=== PATIENT | female | born 1975 | race Caucasian/White ===

== ENCOUNTER → 2019-02-20 | Outpatient (REF) | payer BC ==
[~2019-02-20] MED LIST: PERC5TAB8 OR; [UNRECOGNIZED DRUG - OTHER] OR
[2019-02-20 17:10] LABS: HEMATOCRIT 36.1 % (36.0-47.0); HEMOGLOBIN 12.2 g/dl (12.0-15.5); MEAN CORPUSCULAR HEMOGLOBIN 31.6 pg (27.0-33.0); MEAN CORPUSCULAR HGB CONC 33.8 g/dl (32.0-36.5); MEAN CORPUSCULAR VOLUME 93.5 fl (80.0-96.0); PLATELET COUNT, AUTOMATED 262 10^3/uL (150-450); RED BLOOD COUNT 3.86 10^6/uL (4.00-5.40); WHITE BLOOD COUNT 6.5 10^3/uL (4.0-10.0)
[2019-02-20 17:32] LABS: HCG, SERUM QUALITATIVE NEGATIVE (NEGATIVE)
[2019-02-20 17:35] LABS: ALBUMIN 3.9 GM/DL (3.2-5.2); ALT/SGPT 14 U/L (12-78); BILIRUBIN,DIRECT 0.1 MG/DL (0.0-0.2); BILIRUBIN,TOTAL 0.3 MG/DL (0.2-1.0); CHOLESTEROL LEVEL 251 MG/DL (<200); CHOLESTEROL RISK RATIO 3.861 (<5); HDL CHOLESTEROL 65 MG/DL (>40); LDL CHOLESTEROL 155 MG/DL (<100); NON-HDL-C 186 MG/DL; TOTAL PROTEIN 6.7 GM/DL (6.4-8.2); TRIGLYCERIDES LEVEL 156 MG/DL (<150)
== END ==
LOC: M SFHCPLAZ 16:11
PROVIDERS: ATTEND Dermatology
DX: Z79.899 Other long term (current) drug therapy (principal)

== ENCOUNTER → 2019-03-05 | Outpatient (REF) | payer BC | LOC: M SFHCPLAZ 19:31 | PROVIDERS: ATTEND Dermatology | DX: D49.2 Neoplasm of unspecified behavior of bone, soft tissue, and skin (principal) ==

== ENCOUNTER → 2020-08-16 | Outpatient (CLI) | payer SELFPAY | LOC: M LABSMTC 08:26 | PROVIDERS: ATTEND Pediatrics | DX: Z20.822 Contact with and (suspected) exposure to COVID-19 (principal) ==

== ENCOUNTER → 2021-07-20 | Outpatient (CLI) | payer BC ==
--- NOTE | 2021-07-20 14:26 | REPMRS ---
Patient History The patient states she had a clinical breast exam in May 2021. Family history of colorectal cancer at age 50 or over in maternal grandfather. Reductions of both breasts, 1998. Tomosynthesis is performed. Volpara breast density is b. [facility]%. Patient states no breast complaints today. Patient has signed MRS History Sheet. Digital Woman Screen Mammo: July 20, 2021 - Exam #: [id number] Bilateral CC and MLO view(s) were taken. Technologist: Luzma Choi, Technologist Prior study comparison: July 02, 2020, bilateral digital mammo screening bilat, performed at [facility]. February 15, 2019, bilateral digital mammo screening bilat, performed at [facility]. FINDINGS: The breast tissue is heterogeneously dense. This may lower the sensitivity of mammography. There has been no change in the appearance of the mammogram from the prior studies. There is a moderate amount of residual fibroglandular tissue which is fairly symmetric. There is no interval development of dominant mass, areas of architectural distortion, or clustered microcalcification typical of malignancy. Assessment: BI-RADS/ACR category 1 mammogram. Negative Mammogram. Recommendation Routine screening mammogram in 1 year (for women over age 40). This mammogram was interpreted with the aid of an FDA-approved computer-aided dectection system. Electronically Signed By: Gabriel Sanchez MD 07/20/21 [id number]
== END ==
LOC: M WHC 13:21
PROVIDERS: ATTEND Internal Medicine
DX: Z12.31 Encounter for screening mammogram for malignant neoplasm of breast (principal); Z80.0 Family history of malignant neoplasm of digestive organs

== ENCOUNTER → 2022-06-22 | Outpatient (CLI) | payer BC ==
[~2022-06-22] MED LIST changes: +ISOVUE-370 76% 100ML VIAL As Ordered ONE
== END ==
LOC: M RAD 08:48
PROVIDERS: ATTEND Internal Medicine
DX: D48.7 Neoplasm of uncertain behavior of other specified sites (principal)

== ENCOUNTER → 2024-06-24 | Outpatient (CLI) | payer BC ==
[~2024-06-24] MED LIST changes: -ISOVUE-370 76% 100ML VIAL As Ordered ONE
== END ==
LOC: M WHC 12:25
PROVIDERS: ATTEND Internal Medicine
DX: Z12.31 Encounter for screening mammogram for malignant neoplasm of breast (principal)

== ENCOUNTER → 2025-03-27 | Outpatient (REF) | payer BC ==
[~2025-03-27] MED LIST changes: +FLUO-290 PO; +FLUO-365 PO
[2025-03-27 15:33] LABS: LUTEINIZING HORMONE 8.9 mIU/ML; PROGESTERONE 0.42 NG/ML
[2025-03-27 15:34] LABS: ESTRADIOL 48.3 PG/ML
== END ==
LOC: M LAB REF 12:11
PROVIDERS: ATTEND Internal Medicine
DX: N95.1 Menopausal and female climacteric states (principal)

== ENCOUNTER → 2025-06-27 | Outpatient (CLI) | payer BC | LOC: M WHC 14:28 | PROVIDERS: ATTEND Internal Medicine | DX: Z12.31 Encounter for screening mammogram for malignant neoplasm of breast (principal); R92.333 Mammographic heterogeneous density, bilateral breasts ==

== ENCOUNTER → 2025-07-07 | Outpatient (REF) | payer BC | LOC: M LAB REF 17:22 | PROVIDERS: ATTEND Internal Medicine | DX: N39.0 Urinary tract infection, site not specified (principal) ==